=== PATIENT | male | born 1960 | race Caucasian/White ===

== ENCOUNTER 2016-05-03 13:15 | Outpatient (CLI) ==
[2016-01-13 14:03] VITALS: BMI 33.5
== END 2016-05-03 13:16 ==
LOC: AMBL 13:15
PROVIDERS: ATTEND Emergency Medicine
DX: R53.1 Weakness (principal); R11.0 Nausea; R69 Illness, unspecified; R00.0 Tachycardia, unspecified; Z98.890 Other specified postprocedural states; Z94.4 Liver transplant status

== ENCOUNTER 2016-07-08 07:42 | Outpatient (CLI) ==
[2016-01-13 14:03] VITALS: BMI 33.5
[2016-07-08 08:22] LABS: PROTHROMBIN TIME 9.7 SEC (9.3-11.0)
== END 2016-07-08 07:43 | disposition home or self-care (01) ==
LOC: LAB 07:42
PROVIDERS: ATTEND Physician Assistant Medical
DX: Z94.4 Liver transplant status (principal); L29.9 Pruritus, unspecified
CPT/HCPCS: 36415; 85610

== ENCOUNTER 2017-11-20 19:07 | Emergency (ER) | payer OTHER ==
[2017-11-20 19:11] VITALS: TEMP 99.3; BMI 34.4
[2017-11-20] MEDS ORDERED: LIDOCAINE HCL 1% SDV SUBCUT STA (19:27)
[2017-11-20] MEDS ORDERED: LIDOCAINE HCL 1% SDV ONE (19:28)
[2017-11-20] MEDS ORDERED: BOOSTRIX IM ONE (19:31)
--- NOTE | 2017-11-20 19:32 | ED.PDOC ---
General ED Provider: Dr. AUSTIN ROBERTS Chief Complaint: Hand Laceration Stated Complaint: sustained a laceration to the right hand with a equipment monitor phototypesetting knife while trying to open a box. States he is still able to move his fingers. Time Seen by Physician: 19:32 Mode of Arrival: Walk-In Information Source: Patient Exam Limitations: No limitations [facility] Nursing and Triage Documentation Reviewed and Agree: No Does patient meet sepsis criteria?: No System Inflammatory Response Syndrome: Not Applicable Sepsis Protocol: For patient's 13 years and over: Temp is 96.8 and below OR 101 and greater Pulse >90 BPM Resp >20/minute Acutely Altered Mental Status Are patient's symptoms suggestive of a new infection, such as: -Pneumonia -Skin, Soft Tissue -Endocarditis -UTI -Bone, Joint Infection -Implantable Device -Acute Abdominal Infection -Wound Infection -Meningitis -Blood Stream Catheter Infection -Unknown Skin Complaint Exam - Laceration/Abrasion/Hand Complaint/Exam Location of Injury: Right, Hand Mechanism of Injury: Laceration Onset/Duration: just prior to arrival Symptoms Are: Still present Initial Severity: Severe Current Severity: Moderate Aggravating: Movement Alleviating: Compression Associated Signs and Symptoms: Denies: Fever, Chills, Erythema, Numbness, Tingling Related History: Reports: Right hand dominant Hand Picture: 1 - 1.5 Differential Diagnoses: Laceration Review of Systems - Review Of Systems Constitutional: Reports: No symptoms Eyes: Reports: No symptoms Ears, Nose, Mouth, Throat: Reports: No symptoms Respiratory: Reports: No symptoms Cardiac: Reports: No symptoms GI: Reports: No symptoms : Reports: No symptoms Musculoskeletal: Reports: Joint pain (right hand pain ) Skin: Reports: Other (Laceration ) Neurological: Reports: No symptoms Endocrine: Reports: No symptoms Hematologic/Lymphatic: Reports: No symptoms All Other Systems: Reviewed and Negative Past Medical History - Past Medical History Endocrine: Reports: None Cardiovascular: Reports: None Respiratory: Reports: None Hematological: Reports: None Gastrointestinal: Reports: Liver (hep C) Genitourinary: Reports: None Neuro/Psych: Reports: TIA, CVA Musculoskeletal: Reports: None Cancer: Reports: Other Other Pertinent Past Medical History: htn cva tia liver hep C - Surgical History General Surgical History: Reports: Other (Liver transplant, Hernia repairs) - Family History Family History: Reports: Unknown - Social History Smoking Status: Current every day smoker, Light tobacco smoker Hx Substance Use: No Alcohol Screening: None - Immunizations Tetanus Shot up to Date: No (2009) Physical Exam - Physical Exam Appearance: Well-appearing, Obese Pain Distress: Moderate Eyes: PRADEEP, EOMI, Conjunctiva clear Respiratory: Airway patent Cardiovascular: RRR Skin: Warm, Dry Neurological: Sensation intact, Motor intact (hand Thumb muscle intact with good opposition to the rest of the fingers), Alert, Oriented Psychiatric: Anxious Critical Care Note - Critical Care Note Total Time (mins): 0 Course - Course Orders, Labs, Meds: Orders Category Date Time Status Diphth,Pertuss(Acell),Tet Vac [Boostrix] MEDS 11/20/17 19:31 Discontinued 0.5 ml IM .ONCE ONE Lidocaine HCl/Pf [Lidocaine HCl 1% Sdv] MEDS 11/20/17 19:28 Discontinued 5 ml .ROUTE .STK-MED ONE Lidocaine HCl/Pf [Lidocaine HCl 1% Sdv] MEDS 11/20/17 19:27 Discontinued 5 ml SUBCUT ONCE STA Medications Discontinued Medications Generic Name Dose Route Start Last Admin Trade Name Freq PRN Reason Stop Dose Admin Diphtheria/Pertussis/Tetanus Vacc 0.5 ml 11/20/17 19:31 11/20/17 19:35 Boostrix IM 11/20/17 19:32 0.5 ml .ONCE ONE Administration Lidocaine HCl 5 ml 11/20/17 19:27 11/20/17 19:31 Lidocaine Hcl 1% Sdv SUBCUT 11/20/17 19:28 5 ml ONCE STA Administration Vital Signs: Temp Pulse Resp BP Pulse Ox 11/20/17 19:59 90 16 142/86 H 98 11/20/17 19:09 99.3 F 99 H 16 152/97 H 97 Departure - Departure Time of Disposition: 19:58 Disposition: HOME SELF-CARE Discharge Problem: Laceration of hand Instructions: Laceration (ED), Tdap and Td Vaccines for Adults (ED) Condition: Stable Pt referred to PMD for follow-up: Yes IPMP verified?: No Additional Instructions: Haves sutures removed in 7-10 days Keep wound clean and dry Report any signs of infection Allergies/Adverse Reactions: Allergies No Known Allergies Allergy (Verified 11/20/17 19:11) Home Medications: Ambulatory Orders Metoprolol Tartrate [Lopressor] 25 mg PO BID 10/19/12 Prednisone 50 mg PO DAILYWM 11/20/17 Disposition Discussed With: Patient, Family
[2017-11-20 20:00] VITALS: BP 142/86
== END 2017-11-20 20:05 | disposition home or self-care (01) ==
LOC: ED 19:07
DX: S61.411A Laceration without foreign body of right hand, initial encounter (principal); W26.0XXA Contact with knife, initial encounter; F17.210 Nicotine dependence, cigarettes, uncomplicated
CPT/HCPCS: 90471; 90715; 99283

== ENCOUNTER 2022-06-21 11:43 | Inpatient (IN) ==
[2022-06-21] MEDS ORDERED: SODIUM CHLORIDE 1,000 ML IV STA (11:52)
[2022-06-21] MEDS ORDERED: ZOFRAN 4 MG/2 ML IVP ONE ×2 (11:52→15:37)
--- NOTE | 2022-06-21 11:58 | ED.PDOC ---
General ED Provider: Dr. CHAKA BREWER MD Chief Complaint: Nausea/Vomiting Stated Complaint: mild to mod abdominal cramps today diffuse, hx liver transplant, and htn, no RI, no dm, no fever, +NV, no injury Time Seen by Provider: 06/21/22 11:52 Mode of Arrival: Ambulance Information Source: Patient Nursing and Triage Documentation Reviewed and Agree: Yes Does patient meet sepsis criteria?: No System Inflammatory Response Syndrome: Not Applicable Sepsis Protocol: For patient's 13 years and over: Temp is 96.8 and below OR 101 and greater Pulse >90 BPM Resp >20/minute Acutely Altered Mental Status Are patient's symptoms suggestive of a new infection, such as: -Pneumonia -Skin, Soft Tissue -Endocarditis -UTI -Bone, Joint Infection -Implantable Device -Acute Abdominal Infection -Wound Infection -Meningitis -Blood Stream Catheter Infection -Unknown Review of Systems Review Of Systems Constitutional: Reports Malaise; Denies Fever Eyes: Denies Vision change Ears, Nose, Mouth, Throat: Denies Throat pain Respiratory: Denies Short of air Cardiac: Denies Chest pain GI: Reports Abdominal pain and Vomiting : Denies Frequency Musculoskeletal: Denies Neck pain Skin: Denies Rash or Cyanosis Neurological: Denies Cognitive dysfunction or Headache All Other Systems: [facility] History Anxiety Chronic hepatitis C Depression Hypertension Family History FATHER Diabetes Social History Smoking and tobacco status: Current some day smoker Tobacco: How many years used: 25 Quit status: considering quitting Alcohol intake: never Counseling given: No Counseling given: No Counseling provided: none Neli/roman catholic: CHRISTIAN Special neli needs: No Agree to transfusion: Yes Adopted: No Foster care: No Household members: spouse Housing: house Marital status: M Lives independently: Yes Daycare: no daycare Number of children: 0 Number of grandchildren: 0 Highest education level completed: Associate degree: occupational, technical, vocational program Financial difficulty paying for basics: somewhat hard service: No snf: No Current occupational status: disabled Current occupational exposures/hazards: No Do you think of yourself as: straight/heterosexual Current gender identity: male Seatbelt use: always Drives intoxicated or rides with intoxicated 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 Surgical History History of surgery Physical Exam Physical Exam Appearance: Reports Ill-appearing Ill-appearing: Mild Pain Distress: Mild Eyes: Reports Conjunctiva clear ENT: Reports Dry mucosa Neck: Supple Respiratory: Reports Airway patent Cardiovascular: Reports RRR GI/: Reports Soft and Tender (no rebound) Musculoskeletal: Reports ROM intact and No edema Skin: Reports Warm and Dry Neurological: Reports Alert and Oriented Psychiatric: Reports Affect appropriate Interpretation Radiology Interpretation Radiology Interpretation By: Radiologist Exam Interpreted: CT Scan Xray Comments: no obstruction, no free air EKG Interpretation Time of EKG #1: 15:31 Rate: Normal Rhythm: Sinus Interpretation: no stemi Critical Care Note Critical Care Note Total Critical Care Time (mins): 0 Course Course Hematology/Chemistry: 06/21/22 12:08 06/21/22 12:08 Orders, Labs, Meds: Lab Review 06/21/22 06/21/22 06/21/22 12:08 12:08 12:08 WBC 9.02 RBC 6.31 H Hgb 18.6 H Hct 56.9 H MCV 90.2 MCH 29.5 MCHC 32.7 RDW Coeff of Rafi 13.5 Plt Count 196 Immature Gran % (Auto) 0.3 Neut % (Auto) 78.1 H Lymph % (Auto) 16.1 Blount % (Auto) 3.9 Eos % (Auto) 1.0 Baso % (Auto) 0.6 Neut # (Auto) 7.1 H Lymph # (Auto) 1.5 Blount # (Auto) 0.4 Eos # (Auto) 0.1 Baso # (Auto) 0.1 Immature Gran # (Auto) 0.0 Sodium 141.9 Potassium 4.12 Chloride 104.6 Carbon Dioxide 29.4 Anion Gap 12.02 BUN 14.9 Creatinine 0.78 Estimated GFR (MDRD) 101.00 BUN/Creatinine Ratio 19.10 Glucose 151.6 H Lactic Acid 1.21 Calcium 10.26 H Total Bilirubin 1.56 H AST 60.3 H ALT 49.4 Alkaline Phosphatase 295.7 H Troponin I < 0.012 Total Protein 8.88 H Albumin 4.66 Globulin 4.22 Albumin/Globulin Ratio 1.10 Lipase 64.5 Plasma/Serum Alcohol < 10.0 Orders Category Date Time Status EKG-(ED ONLY) Stat CARDIO 06/21/22 11:52 Completed BLOOD ALCOHOL Stat LAB 06/21/22 12:08 Completed CBC W/ AUTO DIFF Stat LAB 06/21/22 12:08 Completed CMP [COMPREHENSIVE METABOLIC PANEL] Stat LAB 06/21/22 12:08 Completed LACTIC ACID Stat LAB 06/21/22 12:08 Completed LIPASE Stat LAB 06/21/22 12:08 Completed TROPONIN I Stat LAB 06/21/22 12:08 Completed Labetalol HCl [Trandate] MEDS 06/21/22 15:30 Once 10 mg IVP ONCE ONE Ondansetron HCl/Pf [Zofran 4 mg/2 ml] MEDS 06/21/22 11:52 Discontinued 4 mg IVP ONCE ONE Sodium Chloride 0.9% [Sodium Chloride] 1,000 ml MEDS 06/21/22 11:[address] ABDOMEN/PELVIS WO CONTRAST Stat RADS 06/21/22 11:52 Completed Medications Discontinued Medications Generic Name Dose Route Start Last Admin Trade Name Freq PRN Reason Stop Dose Admin Sodium Chloride 1,000 mls @ 1,000 mls/hr 06/21/22 11:52 06/21/22 12:55 Sodium Chloride IV 06/21/22 12:51 1,000 mls/hr BOLUS STA Administration Ondansetron HCl 4 mg 06/21/22 11:52 06/21/22 12:55 Ondansetron Hcl/Pf 4 Mg/2 Ml Sdv IVP 06/21/22 11:53 4 mg ONCE ONE Administration Vital Signs: Temp Pulse Resp BP Pulse Ox 06/21/22 13:22 183/98 H 06/21/22 11:45 97.8 F 77 18 215/94 H 100 Discharge Plan Discharge Patient Disposition: ADMITTED INPATIENT Discharge Problem: Intractable vomiting, Hypertension Prescriptions: No Action No Reported Medications 0 Qty: 0 Did you review [place] [address] BAILIFF for ALL controlled substances?: Not Applicable ED Provider: CHAKA BREWER Condition: Stable Physician Progress Note: [] pt tele full admit to hospitalist
[2022-06-21 12:14] LABS: BASOPHILS # (AUTO) 0.1 K/uL (0-0.2); BASOPHILS % (AUTO) 0.6 % (0.0-3.0); EOSINOPHILS # (AUTO) 0.1 K/ul (0.0-0.7); HEMATOCRIT 56.9 % (42.0-52.0); HEMOGLOBIN 18.6 g/dl (14.0-18.0); IMMATURE GRANULOCYTE % (AUTO) 0.3 % (0.0-5.0); LYMPHOCYTES # (AUTO) 1.5 K/uL (0.60-3.4); LYMPHOCYTES % (AUTO) 16.1 (10.0-50.0); MEAN CORPUSCULAR HEMOGLOBIN 29.5 pg (27.0-31.0); MEAN CORPUSCULAR HGB CONC 32.7 (31.8-35.4); MEAN CORPUSCULAR VOLUME 90.2 fl (80.0-94.0); MONOCYTES # (AUTO) 0.4 K/uL (0.4-2.0); MONOCYTES % (AUTO) 3.9 (0-10); NEUTROPHILS # (AUTO) 7.1 K/ul (2.0-6.9); NEUTROPHILS % (AUTO) 78.1 % (42.2-75.2); PLATELET COUNT 196 10^3/uL (140-440); RDW COEFFICIENT OF VARIATION 13.5 % (11.6-14.8); RED BLOOD COUNT 6.31 10^6/ul (4.70-6.10); WHITE BLOOD COUNT 9.02 K/ul (4.2-10.2)
[2022-06-21 12:25] LABS: ALANINE AMINOTRANSFERASE 49.4 U/L (0-50); ALBUMIN 4.66 g/dL (3.5-5.0); ALKALINE PHOSPHATASE 295.7 U/L (56-119); ASPARTATE AMINO TRANSFERASE 60.3 U/L (17-59); BILIRUBIN,TOTAL 1.56 mg/dL (0.2-1.3); BLOOD UREA NITROGEN 14.9 mg/dL (9-20); CALCIUM 10.26 mg/dL (8.4-10.2); CARBON DIOXIDE 29.4 mmol/L (22-30.0); CHLORIDE 104.6 mmol/L (98-107); CREATININE 0.78 mg/dL (0.60-1.10); GLUCOSE 151.6 mg/dL (74-106); LIPASE 64.5 U/L (23-300); POTASSIUM 4.12 mmol/L (3.5-5.1); SODIUM 141.9 mmol/L (134.5-145); TOTAL PROTEIN 8.88 g/dL (6.3-8.2)
[2022-06-21 12:37] LABS: BLOOD ALCOHOL < 10.0 mg/dL (0.0-50.0); TROPONIN I < 0.012 ng/ml (0.0000-0.120)
--- NOTE | 2022-06-21 13:09 | CT ---
EXAM: CT ABDOMEN PELVIS WITHOUT CONTRAST HISTORY: Vomiting COMPARISON: None. TECHNIQUE: Serial axial images of the abdomen pelvis were performed from the lung bases through the inferior pelvis without contrast. These were viewed in multiple planes. FINDINGS: Abdomen. Images of the lower thorax show no pulmonary infiltrate. Liver: There is uniform CT attenuation of the liver. Pneumobilia is again noted there are no solid or cystic lesions. Gallbladder: The gallbladder is surgically absent Pancreas: Normal. Spleen: Granulomatous calcifications are present in the spleen. Adrenal glands: Normal. Kidneys: The renal contours are visualized. There are no solid masses. There is no hydronephrosis. There is no nephrolithiasis. Ureters: Ureters are unobstructed. Aorta: The aorta is normal in caliber. There is no evidence of aneurysm. Retroperitoneum: There is no retroperitoneal adenopathy. Bowel: Sutures are present associated with small bowel surgery in the left upper quadrant this is un changed The appendix is identified and is unremarkable. Diverticulosis is noted in the descending a nd sigmoid colon. Skeletal system: There is no acute osseous abnormality. Motion artifact is present in the proximal femurs bilaterally. 2. Surgical anchors associated with mesh are present on the anterior abdominal wall. Bladder: The bladder is unremarkable. IMPRESSION: Postsurgical changes noted in the small bowel in the left upper quadrant.. There is mil d dilatation of the small bowel proximal to the suture line. 2. Mesh is present on the anterior abdominal wall. All CT scans are performed using dose optimization techniques as appropriate to the performed exam an d include at least one of the following: Automated exposure control, adjustment of the mA and/or kV according t o size, and the use of iterative reconstruction technique.
[2022-06-21] MEDS ORDERED: TRANDATE IVP ONE (15:30)
[2022-06-21 16:20] LABS: SARS COV-2 RNA RAPID NAAT NEGATIVE (NEGATIVE)
[2022-06-21] MEDS: SODIUM CHLORIDE 1,000 ML IV SCH (17:00)
[2022-06-21 17:52] VITALS: BMI 27.8
[2022-06-21] MEDS: TYLENOL PO PRN (20:04)
[2022-06-21] MEDS: TRANDATE PO SCH (20:04)
[2022-06-21] MEDS: ZOFRAN 4 MG/2 ML IVP SCH (20:04)
[2022-06-22] MEDS: SODIUM CHLORIDE 1,000 ML IV SCH ×2 (00:25→13:28)
[2022-06-22] MEDS: ZOFRAN 4 MG/2 ML IVP SCH ×3 (05:32→19:47)
[2022-06-22] MEDS: TYLENOL PO PRN (05:32)
[2022-06-22 05:57] LABS: BASOPHILS % (AUTO) 0.4 % (0.0-3.0); EOSINOPHILS # (AUTO) 0.1 K/ul (0.0-0.7); EOSINOPHILS % (AUTO) 1.5 % (0.0-7.0); HEMATOCRIT 50.5 % (42.0-52.0); HEMOGLOBIN 16.5 g/dl (14.0-18.0); IMMATURE GRANULOCYTE % (AUTO) 0.2 % (0.0-5.0); LYMPHOCYTES # (AUTO) 1.9 K/uL (0.60-3.4); LYMPHOCYTES % (AUTO) 20.7 (10.0-50.0); MEAN CORPUSCULAR HEMOGLOBIN 29.3 pg (27.0-31.0); MEAN CORPUSCULAR HGB CONC 32.7 (31.8-35.4); MEAN CORPUSCULAR VOLUME 89.5 fl (80.0-94.0); MONOCYTES # (AUTO) 0.5 K/uL (0.4-2.0); MONOCYTES % (AUTO) 4.9 (0-10); NEUTROPHILS # (AUTO) 6.7 K/ul (2.0-6.9); NEUTROPHILS % (AUTO) 72.3 % (42.2-75.2); PLATELET COUNT 162 10^3/uL (140-440); RDW COEFFICIENT OF VARIATION 13.9 % (11.6-14.8); RED BLOOD COUNT 5.64 10^6/ul (4.70-6.10); WHITE BLOOD COUNT 9.31 K/ul (4.2-10.2)
[2022-06-22 06:06] LABS: BILIRUBIN,URINE 1+ (NEGATIVE); CLARITY,URINE Clear (CLEAR); COLOR,URINE Yellow (YELLOW); GLUCOSE, URINE (UA) Negative (NEGATIVE); KETONES,URINE Negative (NEGATIVE); LEUKOCYTE ESTERASE ,URINE Negative (NEGATIVE); NITRITE,URINE Negative (NEGATIVE); PROTEIN,URINE Negative (NEGATIVE); URINE, BLOOD Negative (NEGATIVE)
[2022-06-22 06:09] LABS: ALANINE AMINOTRANSFERASE 46.1 U/L (0-50); ALBUMIN 3.84 g/dL (3.5-5.0); ASPARTATE AMINO TRANSFERASE 57.4 U/L (17-59); BILIRUBIN,TOTAL 2.38 mg/dL (0.2-1.3); BLOOD UREA NITROGEN 16.1 mg/dL (9-20); CALCIUM 8.77 mg/dL (8.4-10.2); CARBON DIOXIDE 23.9 mmol/L (22-30.0); CHLORIDE 107.6 mmol/L (98-107); CREATININE 0.68 mg/dL (0.60-1.10); GLUCOSE 119.5 mg/dL (74-106); POTASSIUM 4.01 mmol/L (3.5-5.1); SODIUM 139.4 mmol/L (134.5-145); TOTAL PROTEIN 7.5 g/dL (6.3-8.2)
[2022-06-22 06:17] LABS: AMPHETAMINE SCREEN,URINE POSITIVE (NEGATIVE); BARBITURATE SCREEN,URINE NEGATIVE (NEGATIVE); BENZODIAZEPINES SCREEN,URINE NEGATIVE (NEGATIVE); CANNABINOID SCREEN,URINE POSITIVE (NEGATIVE); COCAIN SCREEN,URINE NEGATIVE (NEGATIVE); METHADONE URINE SCREEN NEGATIVE (NEGATIVE); METHAMPHETAMINES SCREEN,URINE POSITIVE (NEGATIVE); OPIATE SCREEN,URINE NEGATIVE (NEGATIVE); OXYCODONE URINE SCREEN NEGATIVE (NEGATIVE); PHENCYCLIDINE SCREEN,URINE NEGATIVE (NEGATIVE); PROPOXYPHENE URINE SCREEN NEGATIVE (NEGATIVE); TRICYCLIC ANTIDEPRESSANTS URIN NEGATIVE (NEGATIVE)
[2022-06-22] MEDS: TRANDATE PO SCH ×2 (08:17→19:36)
--- NOTE | 2022-06-22 14:50 | PCM.PROG ---
Date Seen by Provider: 06/22/22 Time Seen by Provider: 14:46 Subjective: dx. 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
--- NOTE | 2022-06-22 15:54 | CT ---
EXAM: CT OF THE ABDOMEN AND PELVIS WITH CONTRAST TECHNIQUE: CT of the abdomen and pelvis was performed with contrast. Multiplanar reformats were perf ormed. HISTORY: Abdominal pain. Prior liver transplant. COMPARISON: CT abdomen pelvis 06/21/2022. FINDINGS: Imaged lower thorax: Mild dependent atelectasis in the right lower lobe. Coronary calcifications. Liver: Postop changes from liver transplantation. No focal liver lesion. Mild diffuse liver parench ymal heterogeneity and hypo attenuation. Portosystemic venous collateralization demonstrated. Gallbladder/Bile Ducts: Pneumobilia associated with hepaticojejunostomy. Cholecystectomy. Spleen: Scattered calcified granulomas. No splenomegaly. Pancreas: Unremarkable. Adrenals: Unremarkable. Kidneys/Ureters: Unremarkable. Bowel/mesentery/peritoneum: Multiple dilated loops of proximal small bowel and distension of the stom ach. A transition point identified a loop of small bowel along the midline anterior abdominal wall, could be associated with adhesions. This is best demonstrated on axial image 122. Status post abdomi nal wall herniorrhaphy. Small fat containing umbilical hernia along the inferior margin of the herni a mesh. Small-volume ascites. Normal appendix. No free air. Retroperitoneum/vessels: Moderate scattered atherosclerotic calcifications. No aortic aneurysm. No a denopathy. Pelvis: Urinary bladder is mostly emptied. Prostate is unremarkable. Bones/body wall: Transitional lumbosacral anatomy. Multilevel spondylosis. No aggressive appearing osseous lesion. IMPRESSION: Small bowel obstruction with transition point in the midline anterior abdomen, could be associated wi th adhesions. Status post abdominal wall herniorrhaphy. Liver transplantation. Mild heterogeneity of the liver and splenic parenchyma and small-volume ascit es, could be from increased volume status. Small volume ascites. Atherosclerotic disease with coronary calcifications. All CT scans are performed using dose optimization techniques as appropriate to the performed exam an d include at least one of the following: Automated exposure control, adjustment of the mA and/or kV according t o size, and the use of iterative reconstruction technique.
--- NOTE | 2022-06-22 18:36 | PCM.DC ---
Final Diagnosis: sbo vomiting hypertension Physical Exam Appearance: Well-appearing Ill-appearing: None Pain Distress: Mild Eyes: Conjunctiva clear ENT: Oropharynx normal Neck: Supple Respiratory: Airway patent Cardiovascular: RRR GI/: Soft and Tender (no rebound) Musculoskeletal: ROM intact Skin: Warm and Dry Neurological: Alert and Oriented Psychiatric: Affect appropriate Reason for Hospitalization: intractable vomiting and hypertension Prognosis/Condition at Discharge: good Medications at Discharge: zofran Lab/Diagnostics: wbc 9.3, java web developer 0.6, contrast ct abd +sbo Education Provided to Patient and Family: npo, pt refused ngt Follow-ups: transfter accepted at [facility] by Dr Damian Discharge Disposition: Transfer Hospital Course: improved blood pressure control Plan: transfer to surgery at [facility]
[2022-06-22 19:39] VITALS: BP 134/82; TEMP 99.6
== END 2022-06-22 20:20 | DRG 392 ==
LOC: ED 11:43 → MEDSURG A 15:55
PROVIDERS: ADMIT Emergency Medicine Emergency Medical Services; ATTEND Emergency Medicine Emergency Medical Services
DX: I10 Essential (primary) hypertension; K56.50 Intestinal adhesions [bands], unspecified as to partial versus complete obstruction; Z03.89 Encounter for observation for other suspected diseases and conditions ruled out; Z20.822 Contact with and (suspected) exposure to COVID-19; Z94.4 Liver transplant status; R11.10 Vomiting, unspecified